=== PATIENT | female | born 2000 | race Two or more races ===

== ENCOUNTER 2022-06-13 10:14 | Inpatient (IN) | payer MEDICAID ==
[~2022-06-13] VITALS: Ht 180.3 cm; Wt 58.4 kg
[2022-06-13 11:09] LABS: Basophils # (auto) 0 10 ^3/uL (0-0.2); Basophils % (auto) 0.1 % (0.0-2.0); Eosinophils # (auto) 0.1 10 ^3/uL (0-0.8); Monocytes # (auto) 0.5 10 ^3/uL (0-1.3); White Blood Cell 10.8 10^3/uL (4.4-10.8)
[2022-06-13 11:11] LABS: Hematocrit 40.1 % (36.0-46.0); Hemoglobin 13.4 g/dL (12.2-16.2); Lymphocytes # (auto) 1.2 10 ^3/uL (0.4-5.4); Lymphocytes % (auto) 11.1 % (10.0-50.0); Mean Corpuscular Hemoglobin 27.6 pg (28.0-32.0); Mean Corpuscular Hgb Conc. 33.5 g/dL (32.0-36.0); Mean Corpuscular Volume 82.4 fL (80.0-100.0); Neutrophils % (auto) 82.8 % (37.0-80.0); Nucleated Red Blood Cells % 0.2 %; Red Blood Cells 4.87 10^6/uL (4.0-5.20); Red Cell Distribution Width 14.1 % (11.8-14.3)
[2022-06-13 11:24] LABS: Albumin 2.9 g/dL (3.4-5.0); Potassium 3.8 mmol/L (3.5-5.1)
[2022-06-13 11:26] LABS: BUN/Creatinine Ratio 13.7 (10.0-20.0)
[2022-06-13 11:29] LABS: Bilirubin, Total 0.3 mg/dL (0.2-1.0); Total Protein 8.3 g/dL (6.4-8.2)
[2022-06-13] MEDS ORDERED: ONDANSETRON ODT 4 MG TAB PO ONE (14:00)
[2022-06-13] MEDS ORDERED: LIDOCAINE VISCOUS 2% 15ML UD PO ONE (14:00)
[2022-06-13] MEDS ORDERED: MAALOX PLUS or MAALOX 30 ML PO ONE (14:00)
[2022-06-13] MEDS ORDERED: FAMOTIDINE 20 MG TAB PO ONE (14:00)
[2022-06-13] MEDS ORDERED: LACTATED RINGER'S 1,000 ML IV ONE (15:15)
[2022-06-13 15:32] LABS: Urine Bacteria FEW /hpf (None Seen); Urine Blood Negative /uL (Negative); Urine Hyaline Cast FEW /lpf (0 - 2); Urine Mucus FEW (None Seen); Urine Specific Gravity 1.018 (1.001-1.035); Urine WBC 2 /hpf (0 - 5)
[2022-06-13] MEDS: SODIUM CHLORIDE 0.9% 1,000 ML IV SCH (17:15)
[2022-06-13] MEDS ORDERED: LORazepam 2MG/ML-1ML VIAL IV ONE (17:15)
[2022-06-13] MEDS: ONDANSETRON HCL 4 MG/2 ML VIAL IV PRN (20:06)
[2022-06-13] MEDS: MORPHINE SULFATE INJ 2 MG/ml SYRG IV PRN (20:07)
[2022-06-13] MEDS: cefTRIAXone 1GM/50ML D5W 50 ML IV SCH (20:46)
[2022-06-13] MEDS: metroNIDAZOLE 500MG/100ML 100 ML IV SCH (23:10)
[2022-06-14] MEDS: SODIUM CHLORIDE 0.9% 1,000 ML IV SCH ×3 (01:35→18:15)
[2022-06-14 02:02] VITALS: BP 127/93
[2022-06-14] MEDS ORDERED: SERT-160 PO (02:53)
[2022-06-14] MEDS ORDERED: HALO5TAB PO (02:53)
[2022-06-14] MEDS ORDERED: MIRT1TAB38 PO (02:53)
[2022-06-14] MEDS ORDERED: BENZ2TAB2 PO (02:53)
[2022-06-14] MEDS ORDERED: LITH300C3 PO (02:53)
[2022-06-14 05:00] VITALS: BP 98/60
[2022-06-14] MEDS: metroNIDAZOLE 500MG/100ML 100 ML IV SCH ×3 (06:06→22:00)
[2022-06-14 07:08] LABS: Basophils # (auto) 0 10 ^3/uL (0-0.2); Basophils % (auto) 0.5 % (0.0-2.0); Eosinophils # (auto) 0.1 10 ^3/uL (0-0.8); Eosinophils % (auto) 2.9 % (0.0-7.0); Hematocrit 32.3 % (36.0-46.0); Hemoglobin 10.8 g/dL (12.2-16.2); Lymphocytes # (auto) 1.1 10 ^3/uL (0.4-5.4); Lymphocytes % (auto) 30.5 % (10.0-50.0); Mean Corpuscular Hemoglobin 27.8 pg (28.0-32.0); Mean Corpuscular Hgb Conc. 33.4 g/dL (32.0-36.0); Mean Corpuscular Volume 83.2 fL (80.0-100.0); Monocytes # (auto) 0.4 10 ^3/uL (0-1.3); Monocytes % (auto) 11.1 % (0.0-12.0); Nucleated Red Blood Cells % 0.1 %; Red Blood Cells 3.88 10^6/uL (4.0-5.20); Red Cell Distribution Width 13.8 % (11.8-14.3); White Blood Cell 3.7 10^3/uL (4.4-10.8)
[2022-06-14 07:31] LABS: Potassium 3.7 mmol/L (3.5-5.1)
[2022-06-14 07:37] LABS: Albumin 2.1 g/dL (3.4-5.0); BUN/Creatinine Ratio 11.8 (10.0-20.0); Calcium 8.3 mg/dL (8.5-10.1)
[2022-06-14 07:40] LABS: Bilirubin, Total 0.2 mg/dL (0.2-1.0); Total Protein 5.7 g/dL (6.4-8.2)
[2022-06-14 09:00] VITALS: BP 107/59
[2022-06-14] MEDS: PANTOPRAZOLE 40 MG/10 ML VIAL INJ IV SCH (09:34)
[2022-06-14] MEDS: cefTRIAXone 1GM/50ML D5W 50 ML IV SCH (09:34)
[2022-06-14] MEDS ORDERED: ENOXAPARIN SOD 40 MG/0.4 ML SYRINGE SC SCH (10:00)
[2022-06-14 10:10] LABS: Amylase 35 U/L (25-115); Lipase 55 U/L (73-393)
[2022-06-14 12:08] LABS: Hematocrit 33.8 % (36.0-46.0)
[2022-06-14] MEDS ORDERED: GASTROGRAFIN 120 ML SOL ONE (13:02)
[2022-06-14 16:00] VITALS: BP 123/75
[2022-06-14 18:18] LABS: Hematocrit 36.7 % (36.0-46.0); Hemoglobin 11.9 g/dL (12.2-16.2)
[2022-06-14 22:00] VITALS: BP 121/76
[2022-06-15 01:04] LABS: Hematocrit 32.5 % (36.0-46.0); Hemoglobin 10.7 g/dL (12.2-16.2)
[2022-06-15] MEDS: SODIUM CHLORIDE 0.9% 1,000 ML IV SCH ×2 (03:32→11:52)
[2022-06-15 05:00] VITALS: BP 118/74
[2022-06-15] MEDS: metroNIDAZOLE 500MG/100ML 100 ML IV SCH ×3 (05:46→21:41)
[2022-06-15 05:58] LABS: Albumin 2.1 g/dL (3.4-5.0); BUN/Creatinine Ratio 10.2 (10.0-20.0); Calcium 8.4 mg/dL (8.5-10.1)
[2022-06-15 06:00] LABS: INR 1.08 (0.9-1.15); Partial Thromboplastin Time 30.7 sec (24.6-33.4)
[2022-06-15 06:01] LABS: Bilirubin, Total 0.2 mg/dL (0.2-1.0); Total Protein 5.8 g/dL (6.4-8.2)
[2022-06-15 06:20] LABS: Basophils # (auto) 0 10 ^3/uL (0-0.2); Basophils % (auto) 0.7 % (0.0-2.0); Eosinophils # (auto) 0.2 10 ^3/uL (0-0.8); Eosinophils % (auto) 4.8 % (0.0-7.0); Hematocrit 32.9 % (36.0-46.0); Hemoglobin 10.8 g/dL (12.2-16.2); Lymphocytes # (auto) 1.2 10 ^3/uL (0.4-5.4); Lymphocytes % (auto) 38.9 % (10.0-50.0); Mean Corpuscular Hemoglobin 27.5 pg (28.0-32.0); Mean Corpuscular Volume 83.2 fL (80.0-100.0); Monocytes # (auto) 0.5 10 ^3/uL (0-1.3); Monocytes % (auto) 14.6 % (0.0-12.0); Neutrophils # (auto) 1.3 10 ^3/uL (1.6-8.6); Nucleated Red Blood Cells % 0.2 %; Red Blood Cells 3.95 10^6/uL (4.0-5.20); Red Cell Distribution Width 13.6 % (11.8-14.3); White Blood Cell 3.2 10^3/uL (4.4-10.8)
[2022-06-15] MEDS: PANTOPRAZOLE 40 MG/10 ML VIAL INJ IV SCH (08:54)
[2022-06-15] MEDS: cefTRIAXone 1GM/50ML D5W 50 ML IV SCH (08:55)
[2022-06-15 09:00] VITALS: BP 100/62
[2022-06-15 13:00] VITALS: BP 113/77
[2022-06-15 17:03] VITALS: BP 126/86
[2022-06-15] MEDS: BENZTROPINE MESY 0.5 MG TAB PO SCH (20:42)
[2022-06-15] MEDS: MORPHINE SULFATE INJ 2 MG/ml SYRG IV PRN (20:42)
[2022-06-15] MEDS: ONDANSETRON HCL 4 MG/2 ML VIAL IV PRN (21:55)
[2022-06-15 22:00] VITALS: BP 119/82
[2022-06-15] MEDS ORDERED: MIRTAZAPINE 30 MG TAB PO SCH (22:00)
[2022-06-16] MEDS: ONDANSETRON HCL 4 MG/2 ML VIAL IV PRN ×2 (02:57→10:30)
[2022-06-16] MEDS: SODIUM CHLORIDE 0.9% 1,000 ML IV SCH ×3 (02:59→11:55)
[2022-06-16 05:00] VITALS: BP 118/86
[2022-06-16] MEDS: metroNIDAZOLE 500MG/100ML 100 ML IV SCH (05:04)
[2022-06-16] MEDS: BENZTROPINE MESY 0.5 MG TAB PO SCH (08:53)
[2022-06-16] MEDS: cefTRIAXone 1GM/50ML D5W 50 ML IV SCH (08:54)
[2022-06-16] MEDS: PANTOPRAZOLE 40 MG/10 ML VIAL INJ IV SCH (08:54)
[2022-06-16] MEDS ORDERED: MIRT-66 PO (08:55)
[2022-06-16 09:00] VITALS: BP 102/65
[2022-06-16] MEDS ORDERED: LITHIUM CARBONATE 300 MG TAB PO SCH (10:00)
[2022-06-16] MEDS ORDERED: SERTRALINE HCL 50 MG TAB PO SCH (10:00)
[2022-06-16] MEDS ORDERED: PANT40T PO (11:03)
[2022-06-16] MEDS ORDERED: ONDA-144 PO (11:03)
[2022-06-16] MEDS ORDERED: METR500T PO (11:42)
[2022-06-16] MEDS ORDERED: LEVO500T31 PO (11:42)
[2022-06-16 12:00] VITALS: BP 114/78
== END 2022-06-16 12:15 | disposition home health service (06) | DRG 247 ==
LOC: ER 10:14 → OVERFLOW 17:05 → WEST WING 06-14 01:47 → TELE-WESTW 06-14 11:28
PROVIDERS: ADMIT Nurse Practitioner Family; ATTEND Internal Medicine
PROC: 0D9670Z Drainage of Stomach with Drainage Device, Via Natural or Artificial Opening (ICD-10-PCS; principal; 2022-06-13)
DX: K56.609 Unspecified intestinal obstruction, unspecified as to partial versus complete obstruction (principal); E44.1 Mild protein-calorie malnutrition; D64.9 Anemia, unspecified; E86.0 Dehydration; E87.1 Hypo-osmolality and hyponatremia; K52.3 Indeterminate colitis; F20.9 Schizophrenia, unspecified; R63.4 Abnormal weight loss; F31.9 Bipolar disorder, unspecified; D72.819 Decreased white blood cell count, unspecified; F41.9 Anxiety disorder, unspecified; Z68.1 Body mass index [BMI] 19.9 or less, adult; Z79.899 Other long term (current) drug therapy; Z91.040 Latex allergy status
CPT/HCPCS: 36415; 71045; 74176; 74250; 80053; 81001; 81025; 82150; 82270; 83690; 84702; 85014; 85018; 85025; 85045; 85610; 85730; 96360; C9113; G0378; J0696; J2405; J3490; Q0162

== ENCOUNTER 2022-06-27 05:19 | Inpatient (IN) | payer MEDICAID ==
[~2022-06-27] VITALS: Ht 180.3 cm; Wt 62.7 kg
[~2022-06-27 05:19] MED LIST: BENZ2TAB2 PO; HALO5TAB PO; LEVO500T31 PO; LITH300C3 PO; METR500T PO; MIRT-66 PO; ONDA-144 PO; PANT40T PO; SERT-160 PO
[2022-06-27 06:11] LABS: Basophils # (auto) 0 10 ^3/uL (0-0.2); Basophils % (auto) 0.2 % (0.0-2.0); Eosinophils # (auto) 0 10 ^3/uL (0-0.8); Eosinophils % (auto) 0.3 % (0.0-7.0); Hematocrit 39.1 % (36.0-46.0); Lymphocytes # (auto) 0.8 10 ^3/uL (0.4-5.4); Lymphocytes % (auto) 9.7 % (10.0-50.0); Mean Corpuscular Hemoglobin 27.6 pg (28.0-32.0); Mean Corpuscular Hgb Conc. 33.2 g/dL (32.0-36.0); Mean Corpuscular Volume 83.1 fL (80.0-100.0); Monocytes # (auto) 0.4 10 ^3/uL (0-1.3); Monocytes % (auto) 4.3 % (0.0-12.0); Neutrophils # (auto) 7.1 10 ^3/uL (1.6-8.6); Neutrophils % (auto) 85.5 % (37.0-80.0); Nucleated Red Blood Cells % 0.1 %; Red Blood Cells 4.71 10^6/uL (4.0-5.20); Red Cell Distribution Width 13.7 % (11.8-14.3); White Blood Cell 8.3 10^3/uL (4.4-10.8)
[2022-06-27 06:31] LABS: Albumin 3.5 g/dL (3.4-5.0); Calcium 9.2 mg/dL (8.5-10.1); Potassium 4.1 mmol/L (3.5-5.1)
[2022-06-27 06:35] LABS: BUN/Creatinine Ratio 8.7 (10.0-20.0); Bilirubin, Total 0.2 mg/dL (0.2-1.0); Total Protein 7.8 g/dL (6.4-8.2)
[2022-06-27] MEDS ORDERED: ONDANSETRON HCL 4 MG/2 ML VIAL IV ONE (07:45)
[2022-06-27] MEDS ORDERED: MORPHINE SULFATE 4 MG/ML SYR/VIAL IV ONE (07:45)
[2022-06-27] MEDS ORDERED: SODIUM CHLORIDE 0.9% 1,000 ML IVB ONE (07:45)
[2022-06-27 08:38] LABS: Urine Bacteria MOD /hpf (None Seen); Urine Blood Negative /uL (Negative); Urine Hyaline Cast MANY /lpf (0 - 2); Urine Mucus FEW (None Seen); Urine Specific Gravity 1.016 (1.001-1.035); Urine WBC 12 /hpf (0 - 5)
[2022-06-27] MEDS ORDERED: OLAN20TA30 PO (14:49)
[2022-06-27] MEDS ORDERED: ONDANSETRON HCL 4 MG/2 ML VIAL IV PRN (15:15)
[2022-06-27] MEDS ORDERED: NITROGLYCERIN 0.4 MG SL TAB SL PRN (15:15)
[2022-06-27] MEDS ORDERED: MORPHINE SULFATE INJ 2 MG/ml SYRG IV PRN (15:15)
[2022-06-27] MEDS ORDERED: ACETAMINOPHEN 325 MG TAB PO PRN (15:15)
[2022-06-27] MEDS: OLANZapine 5 MG TAB PO SCH (23:21)
[2022-06-27] MEDS: PANTOPRAZOLE 40 MG/10 ML VIAL INJ IV SCH (23:21)
[2022-06-27] MEDS: HALOPERIDOL 5 MG TAB PO SCH (23:22)
[2022-06-27] MEDS: MIRTAZAPINE 30 MG TAB PO SCH (23:22)
[2022-06-27] MEDS: SODIUM CHLORIDE 0.9% 1,000 ML IV SCH (23:33)
[2022-06-27] MEDS: BENZTROPINE MESY 0.5 MG TAB PO SCH (23:33)
[2022-06-28 06:43] LABS: Albumin 2.7 g/dL (3.4-5.0); Basophils # (auto) 0 10 ^3/uL (0-0.2); Basophils % (auto) 0.4 % (0.0-2.0); Calcium 8.4 mg/dL (8.5-10.1); Eosinophils # (auto) 0.2 10 ^3/uL (0-0.8); Eosinophils % (auto) 4.1 % (0.0-7.0); Hematocrit 33.2 % (36.0-46.0); Hemoglobin 10.8 g/dL (12.2-16.2); Lymphocytes # (auto) 1.2 10 ^3/uL (0.4-5.4); Lymphocytes % (auto) 27.3 % (10.0-50.0); Mean Corpuscular Hgb Conc. 32.4 g/dL (32.0-36.0); Mean Corpuscular Volume 83.4 fL (80.0-100.0); Monocytes # (auto) 0.5 10 ^3/uL (0-1.3); Monocytes % (auto) 10.6 % (0.0-12.0); Neutrophils # (auto) 2.5 10 ^3/uL (1.6-8.6); Neutrophils % (auto) 57.6 % (37.0-80.0); Nucleated Red Blood Cells % 0.1 %; Red Blood Cells 3.98 10^6/uL (4.0-5.20); Red Cell Distribution Width 13.3 % (11.8-14.3); White Blood Cell 4.4 10^3/uL (4.4-10.8)
[2022-06-28 06:48] LABS: BUN/Creatinine Ratio 7.6 (10.0-20.0); Bilirubin, Total 0.2 mg/dL (0.2-1.0); Total Protein 6.2 g/dL (6.4-8.2)
[2022-06-28 07:06] LABS: Lithium (Eskalith) 0.3 mmol/L (0.5-1.2)
[2022-06-28] MEDS: PANTOPRAZOLE 40 MG/10 ML VIAL INJ IV SCH ×2 (10:38→21:22)
[2022-06-28] MEDS: SODIUM CHLORIDE 0.9% 1,000 ML IV SCH ×3 (11:15→21:23)
[2022-06-28] MEDS: LITHIUM CARBONATE 300 MG TAB PO SCH (12:20)
[2022-06-28] MEDS: BENZTROPINE MESY 0.5 MG TAB PO SCH ×2 (12:21→21:20)
[2022-06-28] MEDS: SERTRALINE HCL 50 MG TAB PO SCH (12:21)
[2022-06-28] MEDS: HALOPERIDOL 5 MG TAB PO SCH ×2 (12:21→21:21)
[2022-06-28] MEDS: MIRTAZAPINE 30 MG TAB PO SCH ×2 (12:21→21:20)
[2022-06-28] MEDS ORDERED: METR500T PO (15:30)
[2022-06-28] MEDS ORDERED: LEVO500T31 PO (15:30)
[2022-06-28] MEDS: HYDROcodone-ACET 5/325MG TAB PO PRN (15:45)
[2022-06-28 16:45] VITALS: BP_SYST 112; BP_SYST 150; BP_DIAS 67; BP_DIAS 87
[2022-06-28 20:00] VITALS: BP 109/70
[2022-06-28 20:20] VITALS: BP 109/70
[2022-06-28] MEDS: OLANZapine 5 MG TAB PO SCH (21:21)
[2022-06-28] MEDS: metroNIDAZOLE 500MG/100ML 100 ML IV SCH (21:23)
[2022-06-29 05:00] VITALS: BP 116/70
[2022-06-29 05:52] LABS: Basophils # (auto) 0 10 ^3/uL (0-0.2); Basophils % (auto) 0.8 % (0.0-2.0); Eosinophils # (auto) 0.3 10 ^3/uL (0-0.8); Eosinophils % (auto) 7.3 % (0.0-7.0); Hematocrit 32.8 % (36.0-46.0); Hemoglobin 11.2 g/dL (12.2-16.2); Lymphocytes # (auto) 1.2 10 ^3/uL (0.4-5.4); Lymphocytes % (auto) 30.4 % (10.0-50.0); Mean Corpuscular Hemoglobin 27.9 pg (28.0-32.0); Mean Corpuscular Volume 81.9 fL (80.0-100.0); Monocytes # (auto) 0.5 10 ^3/uL (0-1.3); Monocytes % (auto) 12.4 % (0.0-12.0); Neutrophils # (auto) 1.9 10 ^3/uL (1.6-8.6); Neutrophils % (auto) 49.1 % (37.0-80.0); Nucleated Red Blood Cells % 0.1 %; Red Blood Cells 4.01 10^6/uL (4.0-5.20); Red Cell Distribution Width 13.2 % (11.8-14.3); White Blood Cell 3.9 10^3/uL (4.4-10.8)
[2022-06-29 06:07] LABS: Albumin 2.6 g/dL (3.4-5.0); BUN/Creatinine Ratio 4.8 (10.0-20.0); Calcium 8.3 mg/dL (8.5-10.1); Potassium 4.2 mmol/L (3.5-5.1)
[2022-06-29 06:09] LABS: Bilirubin, Total 0.2 mg/dL (0.2-1.0)
[2022-06-29] MEDS: metroNIDAZOLE 500MG/100ML 100 ML IV SCH ×3 (06:11→21:15)
[2022-06-29] MEDS: SODIUM CHLORIDE 0.9% 1,000 ML IV SCH ×2 (06:13→16:53)
[2022-06-29] MEDS ORDERED: GASTROGRAFIN 120 ML SOL ONE (08:41)
[2022-06-29 08:43] VITALS: BP 120/83
[2022-06-29] MEDS: MIRTAZAPINE 30 MG TAB PO SCH ×2 (10:00→21:16)
[2022-06-29] MEDS: HALOPERIDOL 5 MG TAB PO SCH ×2 (10:00→21:16)
[2022-06-29] MEDS: BENZTROPINE MESY 0.5 MG TAB PO SCH ×2 (10:00→21:16)
[2022-06-29] MEDS: LITHIUM CARBONATE 300 MG TAB PO SCH (10:00)
[2022-06-29] MEDS: SERTRALINE HCL 50 MG TAB PO SCH (10:00)
[2022-06-29] MEDS: PANTOPRAZOLE 40 MG/10 ML VIAL INJ IV SCH ×2 (10:52→21:16)
[2022-06-29] MEDS: cefTRIAXone 1GM/50ML D5W 50 ML IV SCH (10:53)
[2022-06-29 13:00] VITALS: BP 113/84
[2022-06-29 17:00] VITALS: BP 101/62
[2022-06-29 20:00] VITALS: BP 106/74
[2022-06-29] MEDS: HYDROcodone-ACET 5/325MG TAB PO PRN (20:22)
[2022-06-29] MEDS: OLANZapine 5 MG TAB PO SCH (21:16)
[2022-06-29 22:00] VITALS: BP 106/74
[2022-06-30] MEDS: SODIUM CHLORIDE 0.9% 1,000 ML IV SCH ×3 (04:03→23:01)
[2022-06-30 05:00] VITALS: BP 117/81
[2022-06-30] MEDS: metroNIDAZOLE 500MG/100ML 100 ML IV SCH ×3 (06:10→21:40)
[2022-06-30] MEDS: cefTRIAXone 1GM/50ML D5W 50 ML IV SCH (08:20)
[2022-06-30] MEDS: PANTOPRAZOLE 40 MG/10 ML VIAL INJ IV SCH ×2 (08:21→21:39)
[2022-06-30] MEDS: HALOPERIDOL 5 MG TAB PO SCH ×2 (08:21→21:39)
[2022-06-30] MEDS: MIRTAZAPINE 30 MG TAB PO SCH ×2 (08:21→21:39)
[2022-06-30] MEDS: BENZTROPINE MESY 0.5 MG TAB PO SCH ×2 (08:21→21:39)
[2022-06-30] MEDS: SERTRALINE HCL 50 MG TAB PO SCH (08:21)
[2022-06-30] MEDS: LITHIUM CARBONATE 300 MG TAB PO SCH (08:22)
[2022-06-30 09:00] VITALS: BP 103/67
[2022-06-30] MEDS: HYDROcodone-ACET 5/325MG TAB PO PRN (11:35)
[2022-06-30 13:00] VITALS: BP 115/72
[2022-06-30 16:48] VITALS: BP 116/78
[2022-06-30] MEDS: SIMETHICONE 80 MG CHEWABLE TABLET PO SCH ×2 (17:11→21:40)
[2022-06-30 20:00] VITALS: BP 109/68
[2022-06-30] MEDS: OLANZapine 5 MG TAB PO SCH (21:39)
[2022-06-30 22:00] VITALS: BP 109/68
[2022-07-01 05:00] VITALS: BP 114/82
[2022-07-01] MEDS: SIMETHICONE 80 MG CHEWABLE TABLET PO SCH ×3 (06:14→18:00)
[2022-07-01] MEDS: metroNIDAZOLE 500MG/100ML 100 ML IV SCH ×2 (06:14→17:16)
[2022-07-01 09:00] VITALS: BP 104/71
[2022-07-01] MEDS: cefTRIAXone 1GM/50ML D5W 50 ML IV SCH (09:29)
[2022-07-01] MEDS: PANTOPRAZOLE 40 MG/10 ML VIAL INJ IV SCH (09:29)
[2022-07-01] MEDS: BENZTROPINE MESY 0.5 MG TAB PO SCH (09:31)
[2022-07-01] MEDS: MIRTAZAPINE 30 MG TAB PO SCH (09:31)
[2022-07-01] MEDS: LITHIUM CARBONATE 300 MG TAB PO SCH (09:32)
[2022-07-01] MEDS: HALOPERIDOL 5 MG TAB PO SCH (09:32)
[2022-07-01] MEDS: SERTRALINE HCL 50 MG TAB PO SCH (10:05)
[2022-07-01] MEDS: SODIUM CHLORIDE 0.9% 1,000 ML IV SCH (10:59)
[2022-07-01 13:00] VITALS: BP 104/68
[2022-07-01 16:51] VITALS: BP 110/73
[2022-07-01] MEDS ORDERED: PRED20TA2 PO (17:59)
[2022-07-01] MEDS ORDERED: SULF500T37 PO (17:59)
[2022-07-01] MEDS ORDERED: PANT40TA2 PO (17:59)
== END 2022-07-01 18:55 | disposition home or self-care (01) | DRG 245 ==
LOC: ER 05:19 → OVERFLOW 15:28 → EAST 06-28 14:54
PROVIDERS: ADMIT Nurse Practitioner Family; ATTEND Hospitalist
DX: K50.90 Crohn's disease, unspecified, without complications (principal); K56.7 Ileus, unspecified; E86.0 Dehydration; F20.9 Schizophrenia, unspecified; F31.9 Bipolar disorder, unspecified; F41.9 Anxiety disorder, unspecified; F42.9 Obsessive-compulsive disorder, unspecified; Z91.040 Latex allergy status; Z83.3 Family history of diabetes mellitus; Z82.49 Family history of ischemic heart disease and other diseases of the circulatory system; Z80.9 Family history of malignant neoplasm, unspecified
CPT/HCPCS: 36415; 74176; 74250; 76705; 80053; 80178; 81001; 83690; 84702; 85025; 85652; 86141; 86256; 86671; 87081; 96361; 96374; 96375; C9113; G0378; J0696; J2405; J3490

== ENCOUNTER 2023-06-03 10:35 | Inpatient (IN) | payer MEDICAID ==
[~2023-06-03] VITALS: Ht 182.9 cm; Wt 63.0 kg
[~2023-06-03 10:35] MED LIST changes: -BENZ2TAB2 PO; +BENZ2TAB50 PO; -LEVO500T31 PO; -METR500T PO; -MIRT-66 PO; +MIRT-94 PO; +OLAN20TA30 PO; -ONDA-144 PO; -PANT40T PO; +PANT40TA2 PO; +PRED20TA2 PO; +SULF500T37 PO
[2023-06-03 11:35] LABS: Basophils # (auto) 0.1 10 ^3/uL (0-0.2); Eosinophils # (auto) 0.1 10 ^3/uL (0-0.8); Hemoglobin 12.3 g/dL (12.2-16.2); Lymphocytes # (auto) 1.3 10 ^3/uL (0.4-5.4); Mean Corpuscular Volume 81.2 fL (80.0-100.0); Neutrophils # (auto) 2.6 10 ^3/uL (1.6-8.6)
[2023-06-03 11:39] LABS: Basophils % (auto) 1.3 % (0.0-2.0); Eosinophils % (auto) 2.7 % (0.0-7.0); Hematocrit 37.8 % (36.0-46.0); Lymphocytes % (auto) 29.7 % (10.0-50.0); Mean Corpuscular Hemoglobin 26.4 pg (28.0-32.0); Mean Corpuscular Hgb Conc. 32.5 g/dL (32.0-36.0); Monocytes # (auto) 0.4 10 ^3/uL (0-1.3); Monocytes % (auto) 7.9 % (0.0-12.0); Neutrophils % (auto) 58.4 % (37.0-80.0); Red Blood Cells 4.66 10^6/uL (4.0-5.20); Red Cell Distribution Width 14.9 % (11.8-14.3); White Blood Cell 4.5 10^3/uL (4.4-10.8)
[2023-06-03 11:51] LABS: Alanine Aminotransferase 14 U/L (7-40); Albumin 4.4 g/dL (3.2-4.8); Alkaline Phosphatase 127 U/L (46-116); Anion Gap 4 (5-15); Aspartate Aminotransferase 17 U/L (13-40); BUN/Creatinine Ratio 11.1 (10.0-20.0); Blood Urea Nitrogen 9 mg/dL (9-23); Calcium 9.2 mg/dL (8.5-10.1); Carbon Dioxide 26 mmol/L (20-30); Chloride 110 mmol/L (98-107); Glucose 104 mg/dL (74-106); Potassium 4.5 mmol/L (3.5-5.1); Sodium 140 mmol/L (136-145)
[2023-06-03 11:52] LABS: Bilirubin, Total 0.2 mg/dL (0.2-1.0); Total Protein 6.9 g/dL (5.7-8.2)
[2023-06-03 12:30] LABS: Urine Bacteria FEW /hpf (None Seen); Urine Blood Negative /uL (Negative); Urine Clarity Clear (Clear); Urine Color Light-Yellow (Yellow); Urine Protein, UAD Negative (Negative); Urine Specific Gravity 1.014 (1.001-1.035); Urine Urobilinogen Normal (Negative); Urine WBC 1 /hpf (0 - 5); Urine pH 6.5 (5.0-9.0)
[2023-06-03 12:42] LABS: Amphetamine Screen, Urine Neg (NEGATIVE); Barbiturate Scree,Urine Neg (NEGATIVE); Benzodiazephine Screen, Urine Neg (NEGATIVE); Cannabinoid Screen, Urine Neg (NEGATIVE); Cocaine Screen, Urine Neg (NEGATIVE); Opiate Scree,Urine Neg (NEGATIVE); Phencyclidine Screen, Urine Neg (NEGATIVE)
[2023-06-03] MEDS ORDERED: DOCUSATE SOD 100 MG CAP PO PRN (17:30)
[2023-06-03] MEDS ORDERED: ONDANSETRON HCL 4 MG/2 ML VIAL IV PRN (17:30)
[2023-06-03] MEDS ORDERED: NITROGLYCERIN 0.4 MG SL TAB SL PRN (17:30)
[2023-06-03] MEDS ORDERED: HYDROcodone-ACET 5/325MG TAB PO PRN (17:30)
[2023-06-03] MEDS ORDERED: ACETAMINOPHEN 325 MG TAB PO PRN (17:30)
[2023-06-03] MEDS ORDERED: MORPHINE SULFATE INJ 2 MG/ml SYRG IV PRN (17:30)
[2023-06-03] MEDS ORDERED: OLAN1TAB19 PO (17:44)
[2023-06-03] MEDS ORDERED: HAL5T PO (17:44)
[2023-06-03] MEDS ORDERED: MIRT1TAB38 PO (17:44)
[2023-06-03] MEDS ORDERED: LORazepam 2MG/ML-1ML VIAL IV PRN (17:45)
[2023-06-03] MEDS: levETIRAcetam 500 mg/100ml 100 ML IV ONE (19:16)
[2023-06-03 21:45] VITALS: PULSE 68; RESP 16; O2SAT 98
[2023-06-03] MEDS: HALOPERIDOL 5 MG TAB PO SCH (23:27)
[2023-06-03] MEDS: MIRTAZAPINE 30 MG TAB PO SCH (23:27)
[2023-06-03] MEDS: LITHIUM CARBONATE 300 MG TAB PO SCH (23:27)
[2023-06-03] MEDS: OLANZapine 5 MG TAB PO SCH (23:28)
[2023-06-04] VITALS (10 sets, daily range): BP systolic 82–115; BP diastolic 56–70; PULSE 60–91; RESP 14–21; TEMP 98–98.5; O2SAT 97–100
[2023-06-04 07:17] LABS: Basophils # (auto) 0 10 ^3/uL (0-0.2); Eosinophils # (auto) 0.2 10 ^3/uL (0-0.8); Hematocrit 36.8 % (36.0-46.0); Lymphocytes # (auto) 1.9 10 ^3/uL (0.4-5.4); Monocytes # (auto) 0.7 10 ^3/uL (0-1.3); Neutrophils # (auto) 2.2 10 ^3/uL (1.6-8.6); Nucleated Red Blood Cells % 0.1 %
[2023-06-04 07:21] LABS: Basophils % (auto) 0.8 % (0.0-2.0); Eosinophils % (auto) 3.1 % (0.0-7.0); Lymphocytes % (auto) 39.2 % (10.0-50.0); Mean Corpuscular Hemoglobin 26.6 pg (28.0-32.0); Mean Corpuscular Hgb Conc. 32.5 g/dL (32.0-36.0); Mean Corpuscular Volume 81.7 fL (80.0-100.0); Monocytes % (auto) 13.2 % (0.0-12.0); Neutrophils % (auto) 43.7 % (37.0-80.0); Red Blood Cells 4.51 10^6/uL (4.0-5.20); Red Cell Distribution Width 14.9 % (11.8-14.3)
[2023-06-04 07:34] LABS: Alanine Aminotransferase 10 U/L (7-40); Albumin 3.9 g/dL (3.2-4.8); Alkaline Phosphatase 113 U/L (46-116); Anion Gap 5 (5-15); Aspartate Aminotransferase 14 U/L (13-40); Bilirubin, Total 0.3 mg/dL (0.2-1.0); Blood Urea Nitrogen 6 mg/dL (9-23); Calcium 8.9 mg/dL (8.5-10.1); Carbon Dioxide 24 mmol/L (20-30); Chloride 112 mmol/L (98-107); Glucose 88 mg/dL (74-106); Potassium 3.7 mmol/L (3.5-5.1); Sodium 141 mmol/L (136-145); Total Protein 6.4 g/dL (5.7-8.2)
[2023-06-04] MEDS: OLANZapine 5 MG TAB PO SCH (10:05)
[2023-06-04] MEDS: SERTRALINE HCL 50 MG TAB PO SCH (10:05)
[2023-06-05] VITALS (8 sets, daily range): BP systolic 100–111; BP diastolic 60–70; PULSE 47–117; RESP 16; TEMP 98–98.3; O2SAT 97–100
[2023-06-05] MEDS ORDERED: LORazepam 2MG/ML-1ML VIAL IV PRN (10:15)
[2023-06-06] VITALS (8 sets, daily range): BP systolic 92–124; BP diastolic 54–80; PULSE 75–96; RESP 16–22; TEMP 97.7–98.5; O2SAT 94–100
[2023-06-06] MEDS ORDERED: MORPHINE SULFATE INJ 2 MG/ml SYRG IV PRN (21:45)
[2023-06-07 01:00] VITALS: BP 121/78; PULSE 90; RESP 22; TEMP 98; O2SAT 98
[2023-06-07 05:00] VITALS: BP 118/75; PULSE 79; RESP 22; TEMP 97.9; O2SAT 99
[2023-06-07 08:00] VITALS: RESP 20; O2SAT 93
[2023-06-07 09:27] VITALS: BP 103/62; PULSE 96; RESP 20; TEMP 97.9; O2SAT 93
[2023-06-07] MEDS: lamoTRIgine 25 MG TAB PO SCH (09:40)
== END 2023-06-07 11:32 | disposition home or self-care (01) | DRG 53 ==
LOC: ER 10:35 → OVERFLOW 17:22 → WEST WING 23:07
PROVIDERS: ADMIT Nurse Practitioner Family; ATTEND Family Medicine
DX: G40.802 Other epilepsy, not intractable, without status epilepticus (principal); E46 Unspecified protein-calorie malnutrition; K50.90 Crohn's disease, unspecified, without complications; Z68.1 Body mass index [BMI] 19.9 or less, adult; F17.200 Nicotine dependence, unspecified, uncomplicated; F20.9 Schizophrenia, unspecified; F42.9 Obsessive-compulsive disorder, unspecified; F41.9 Anxiety disorder, unspecified; F98.8 Other specified behavioral and emotional disorders with onset usually occurring in childhood and adolescence; F31.9 Bipolar disorder, unspecified; Z79.899 Other long term (current) drug therapy; Z91.199 Patient's noncompliance with other medical treatment and regimen due to unspecified reason; Z81.8 Family history of other mental and behavioral disorders; Z83.3 Family history of diabetes mellitus
CPT/HCPCS: 36415; 70450; 70551; 80053; 80178; 80307; 81001; 81025; 82962; 83605; 83735; 84484; 85025; 95819; G0378

== ENCOUNTER 2024-03-25 21:32 | Emergency (ER) | payer MEDICAID ==
[~2024-03-25] VITALS: Ht 154.9 cm; Wt 55.0 kg
[~2024-03-25 21:32] MED LIST changes: +HAL5T PO; +MIRT1TAB38 PO; +OLAN1TAB19 PO; +OLAN1TAB75 PO; -OLAN20TA30 PO
--- NOTE | 2024-03-25 21:42 | ED.PDOC ---
SOB-HPI HPI Comments HPI: Poor Historian. HPI: 23-year-old female brought in by EMS from home presents with a chief complaint of SOB x 1 hour. Patient tried her inhaler at home without significant improvement. Patient called EMS due to feeling increasingly SOB. Patients initial vital signs on scene were not recorded per EMS. Patient was given 7.5 albuterol and 0.5 atrovent via breathing treatment. After the breathing treatment and upon arrival to ER, patient is sating at 99%. Patient denies COPD or CHF history. PMHx: Asthma, Autism, Crohns, Bronchitis, Schizophrenia, OCD, Bipolar 1 Disorder, ADD, ADHD, Anxiety, Depression PSHx: None Allergies: Latex Initial Vital Signs: BP: 150/78 HR: 125 Temp: 97.1F SpO2: 99% RR: 18 REVIEW OF SYSTEMS: CONSTITUTIONAL: Denies acute: fever, diaphoresis, chills, generalized weakness. HEAD: Denies acute: headache, photophobia Eyes: Denies acute: Double vision, vision loss, eye pain, eye discharge. EARS: Denies acute: tinnitus, hearing loss, ear discharge, ear pain, THROAT: Denies acute: sore throat, swelling, difficulty swallowing , pain with swallowing, change in voice. NECK: Denies acute: neck pain, neck swelling, stiff neck. HEART: Denies acute : chest pain, palpitations, LUNGS: Denies acute: cough, hemoptysis ABDOMEN: Denies acute: abdominal pain, Nausea, Vomiting, diarrhea, melena , hematemesis, hematochezia SKIN: Denies acute: rash, redness, lesions, itchiness. EXTREMITIES: Denies acute: calf pain, numbness, tingling, weakness, denies pain in extremity. Denies acute: Low back pain. Neuro: Denies acute: focal neurological deficit, motor or sensory focal neurological deficit, tremors, seizure like activity, confusion, dizziness, change in mental status, loss of bowel or bladder function, cauda equina like symptoms. : Denies acute: dysuria, hematuria, flank pain, increase in urinary frequency. PSYCH: Denies acute: hallucination, suicidal ideation, homicidal ideation. FEMALE: Denies acute: abnormal vaginal bleeding, foul odor, unusual discharge. PHYSICAL EXAM: General: no acute distress, awake and alert. Head: normocephalic, atraumatic. Neck: supple, trachea is midline, no swelling. Throat: Normal phonation. Eyes:, no erythema, no purulent discharge, no proptosis, no icterus. Heart: regular tachycardic, no significant murmur appreciated. Lungs: Mild respiratory distress, Able to speak in full sentences. No wheezing, no rhonchi, no crackles. No stridors Clear to auscultation bilaterally. Abdomen: non tender to palpation, non distended, soft, no guarding, no rebound, + bowel sounds. Neuro: Awake, Alert, oriented to name, self, situation, follows commands GCS=15. Speech is normal. Skin: no petechia, no purpura, no cyanosis, non-pale, not jaundice. Lower extremities: --no - Pitting edema no deformity, no focal swelling, no calf TTP. Makes eye contact. moves all four extremities. Face: no apparent facial droop. Time Seen by MD: 21:30 Primary Care Provider: HEALTH DEPARTMENT Reviewed notes: Nurses Notes, Allergies Information Source: Patient, Emergency Med Personnel Mode of Arrival: EMS Past Medical History PAST MEDICAL HISTORY: Anxiety, Depression, Schizophrenia, Seizures Past Medical History (Other): Autism Surgical History: Denies all surgeries TAX PREPARER History: Denies all TAX PREPARER Hx Family History Family History: Family hx of DM, Family hx of Cancer, Family hx of heart cecelia Family History (Other): Psychiatric history Social History Smoker: Non-Smoker Alcohol: Occasionally Drugs: Denies Drug Use Lives In: Home Was a procedure done? Was a procedure done?: No Differential Dx Differential Diagnosis: Other (DDx include ACS, unstable angina, anxiety, PE, pneumothroax, neoplasm, cardiac ischemia, COPD, asthma, CHF, pleural effusion, tobacco abuse, pneumonia, hypoxia, hypercapnia, anemia., infection/sepsis., pulmonary edema. Asthma, Cardiac tamponade, infection.) X-Ray, Labs, Meds, VS Vital Signs Date Time Temp Pulse Resp B/P (MAP) Pulse Ox O2 Delivery O2 Flow Rate FiO2 03/25/24 22:40 135 18 97 Room Air* 0 21 03/25/24 22:40 98.0 135 18 123/73 (90) 97 98.0 03/25/24 22:15 98 Room Air* 0 21 03/25/24 21:32 97.1 128 20 153/78 (103) 99 Lab Test 03/25/24 22:30 03/25/24 22:24 03/25/24 21:46 03/25/24 21:30 Range/Units Influenza Type A Antigen Negative Negative Influenza Type B Antigen Negative Negative SARS-CoV-2 Antigen (Rapid) Negative NEGATIVE Troponin I High Sensitivity < 3 L < 3 L </=34 ng/L White Blood Count 5.9 4.4-10.8 10^3/uL Red Blood Count 4.48 4.0-5.20 10^6/uL Hemoglobin 12.7 12.2-16.2 g/dL Hematocrit 37.8 36.0-46.0 % Mean Corpuscular Volume 84.4 80.0-100.0 fL Mean Corpuscular Hemoglobin 28.4 28.0-32.0 pg Mean Corpuscular Hemoglobin Concent 33.7 32.0-36.0 g/dL Red Cell Distribution Width 12.8 11.8-14.3 % Platelet Count 326 140-450 10^3/uL Mean Platelet Volume 7.1 6.9-10.8 fL Neutrophils (%) (Auto) 47.8 37.0-80.0 % Lymphocytes (%) (Auto) 41.2 10.0-50.0 % Monocytes (%) (Auto) 8.2 0.0-12.0 % Eosinophils (%) (Auto) 1.9 0.0-7.0 % Basophils (%) (Auto) 0.9 0.0-2.0 % Neutrophils # (Auto) 2.8 1.6-8.6 10 ^3/uL Lymphocytes # (Auto) 2.5 0.4-5.4 10 ^3/uL Monocytes # (Auto) 0.5 0-1.3 10 ^3/uL Eosinophils # (Auto) 0.1 0-0.8 10 ^3/uL Basophils # (Auto) 0.1 0-0.2 10 ^3/uL Nucleated Red Blood Cells 0.1 % Sodium Level 139 136-145 mmol/L Potassium Level 3.5 3.5-5.1 mmol/L Chloride Level 107 98-107 mmol/L Carbon Dioxide Level 22 20-31 mmol/L Anion Gap 10 5-15 Blood Urea Nitrogen 13 9-23 mg/dL Creatinine 0.80 0.550-1.02 mg/dL Glomerular Filtration Rate Calc 107 >90 mL/min BUN/Creatinine Ratio 16.3 10.0-20.0 Serum Glucose 118 H 74-106 mg/dL Calcium Level 9.8 8.7-10.4 mg/dL Magnesium Level 1.9 1.6-2.6 mg/dL Total Bilirubin 0.2 0.2-1.0 mg/dL Aspartate Amino Transferase (AST) 12 L 13-40 U/L Alanine Aminotransferase (ALT) 9 7-40 U/L Alkaline Phosphatase 102 46-116 U/L Total Protein 7.3 5.7-8.2 g/dL Albumin 4.7 3.2-4.8 g/dL Urine Color Pending Urine Clarity Pending Urine pH Pending Urine Specific [place] Pending Urine Protein Pending Urine Ketones Pending Urine Blood Pending Urine Nitrite Pending Urine Bilirubin Pending Urine Urobilinogen Pending Urine Leukocyte Esterase Pending Urine RBC Pending Urine Microscopic WBC Pending Urine Squamous Epithelial Cells Pending Urine Bacteria Pending Urine Glucose Pending Current Medications Medications (Trade) Dose Ordered Sig/Didi Route Start Time Stop Time Status Last Admin Sodium Chloride 500 ml @ 500 mls/hr Q1H ONCE IV 03/25/24 21:45 03/25/24 22:44 DC 03/25/24 22:41 Albuterol (Ventolin Medneb) 2.5 mg ONCE ONCE NEB 03/25/24 21:45 03/25/24 21:46 DC 03/25/24 22:20 Ipratropium [place] (Atrovent Medneb) 1 mg ONCE ONCE NEB 03/25/24 21:45 03/25/24 21:46 DC 03/25/24 22:20 Methylprednisolone Sodium Succinate (Solu Medrol) 125 mg ONCE ONCE IV 03/25/24 21:45 03/25/24 21:46 DC 03/25/24 22:41 Time of 1ST Reevaluation: 22:00 Reevaluation 1ST: Unchanged Time of 2ND Reevaluation: 23:59 (Patient is now sitting in the lobby speaking full sentences in no acute respiratory distress. Denies any shortness of breath. Patient was offered admission to the hospital but she feels she can go back home. She will call her mother to pick her up. Patient has the medication she needs at home. I will send him home with some prednisone.) Reevaluation 2ND: Resolved Patient Education/Counseling: Diagnosis, Treatment Family Education/Counseling: No Family Present Comments Chest x-ray findings. Patient has no fever and no cough. Departure 1 Departure Time of Disposition: 23:59 Impression: Primary Impression: Acute asthma exacerbation Disposition: HOME / SELF CARE / HOMELESS Condition: Stable Additional Instructions: Additional discharge instructions: You MUST follow-up with your primary care/family doctor in 1 to 2 days. If you are unable to see your primary care/family doctor, please return to our emergency room for re-assessment and re-evaluation in 1 to 2 days. Return to the emergency room here in our facility or to the nearest ER FOREIGN if your symptoms change or worsen. CONSULTATIONS: you MUST Follow-up for consultation as soon as possible with: pulmonology in 1-2 days. Please call for appointment. You MUST call the consultants office yourself to make an appointment. You may need to arrange that through your insurance and/or your primary/family doctor. If you are unable to see the fashion consultant selling in 1 to 2 days, you must return to our emergency room (or any other ER of your choice) for re-assessment and re- evaluation. Adequate fluid hydration. Below is a copy of your radiological report for follow up: [place] [id number] Ph: [phone] DIAGNOSTIC IMAGING Diagnostic Imaging Report : [id number] Signed PATIENT: LISA XIE ACCT: [id number] UNIT: [id number] : 2000 LOC: ER ROOM / BED: / AGE / SEX: 23 / F ADM STATUS: REG ER SERVICE ORDERING PHYSICIAN: FREDIS HAYES DO PROCEDURE(s): CXRP - CHEST PORTABLE REASON: sob ORDER NUMBER(s): [id number], ACCESSION NUMBER(s): [id number] EXAMINATION: AP portable chest radiograph CLINICAL HISTORY: sob COMPARISON: XY CHEST XRAY 1 VIEW on DOS: 06/13/22 FINDINGS: Costophrenic angles partially excluded. Mild central interstitial prominence. No lobar consolidation identified. No definite pleural effusion or pneumothorax. The cardiomediastinal silhouette appears within normal limits given technique. IMPRESSION: Central interstitial prominence is relatively nonspecific but can be seen with edema, reactive airway changes as well as atypical / viral infection. Please correlate clinically. ATED BY: PAKO OREILLY MD DICTATED DATE/TIME: 03/25/242308 SIGNED BY: PAKO OREILLY MD SIGNED DATE/TIME: 03/25/242308 CC: e-Prescriptions Prednisone (Prednisone) 20 Mg Tab 20 MG PO DAILY for 5 Days, #5 CAP Prov: FREDIS HAYES DO 03/26/24 Discharged With: Self Critical Care Note Critical Care Time?: Yes (35 min-critical care time only) I personally scribed for FREDIS HAYES DO ([email or web address]) on 03/25/24 at 21:42. Electronically submitted by Aurelio Rueda ([email or web address]). FREDIS HAYES DO Mar 25, 2024 21:42
[2024-03-25 22:00] LABS: Basophils # (auto) 0.1 10 ^3/uL (0-0.2); Basophils % (auto) 0.9 % (0.0-2.0); Eosinophils # (auto) 0.1 10 ^3/uL (0-0.8); Eosinophils % (auto) 1.9 % (0.0-7.0); Hematocrit 37.8 % (36.0-46.0); Hemoglobin 12.7 g/dL (12.2-16.2); Lymphocytes # (auto) 2.5 10 ^3/uL (0.4-5.4); Lymphocytes % (auto) 41.2 % (10.0-50.0); Mean Corpuscular Hemoglobin 28.4 pg (28.0-32.0); Mean Corpuscular Hgb Conc. 33.7 g/dL (32.0-36.0); Mean Corpuscular Volume 84.4 fL (80.0-100.0); Monocytes # (auto) 0.5 10 ^3/uL (0-1.3); Monocytes % (auto) 8.2 % (0.0-12.0); Neutrophils # (auto) 2.8 10 ^3/uL (1.6-8.6); Neutrophils % (auto) 47.8 % (37.0-80.0); Nucleated Red Blood Cells % 0.1 %; Platelet Count (auto) 326 10^3/uL (140-450); Red Blood Cells 4.48 10^6/uL (4.0-5.20); Red Cell Distribution Width 12.8 % (11.8-14.3); White Blood Cell 5.9 10^3/uL (4.4-10.8)
[2024-03-25 22:17] LABS: Albumin 4.7 g/dL (3.2-4.8); Alkaline Phosphatase 102 U/L (46-116); Anion Gap 10 (5-15); BUN/Creatinine Ratio 16.3 (10.0-20.0); Blood Urea Nitrogen 13 mg/dL (9-23); Calcium 9.8 mg/dL (8.7-10.4); Carbon Dioxide 22 mmol/L (20-31); Chloride 107 mmol/L (98-107); Magnesium 1.9 mg/dL (1.6-2.6); Potassium 3.5 mmol/L (3.5-5.1); Sodium 139 mmol/L (136-145)
[2024-03-25 22:18] LABS: Total Protein 7.3 g/dL (5.7-8.2)
[2024-03-25] MEDS: IPRATROPIUM BROM 0.5 MG/2.5ML INH SOL NEB ONE (22:20)
[2024-03-25] MEDS: ALBUTEROL SULF 2.5 MG/0.5ML(0.5%) NEB SOLN NEB ONE (22:20)
[2024-03-25 22:22] LABS: Alanine Aminotransferase 9 U/L (7-40); Aspartate Aminotransferase 12 U/L (13-40); Bilirubin, Total 0.2 mg/dL (0.2-1.0); Glucose 118 mg/dL (74-106)
[2024-03-25 22:40] VITALS: PULSE 135; RESP 18; O2SAT 97
[2024-03-25] MEDS: SODIUM CHLORIDE 0.9% 500 ML IV ONE (22:41)
[2024-03-25] MEDS: methylPREDNISolone SOD SUCC 125 MG/2 ML VL IV ONE (22:41)
--- NOTE | 2024-03-25 23:11 | DVH ---
EXAMINATION: AP portable chest radiograph CLINICAL HISTORY: sob COMPARISON: XY CHEST XRAY 1 VIEW on DOS: 06/13/22 FINDINGS: Costophrenic angles partially excluded. Mild central interstitial prominence. No lobar consolidation identified. No definite pleural effusion or pneumothorax. The cardiomediastinal silhouette appears within normal limits given technique. IMPRESSION: Central interstitial prominence is relatively nonspecific but can be seen with edema, reactive airway changes as well as atypical / viral infection. Please correlate clinically.
[2024-03-25 23:51] LABS: COVID19 ANTIGEN SOFIA FIA NEGATIVE (NEGATIVE); Rapid Influenza A Negative (Negative); Rapid Influenza B Negative (Negative)
[2024-03-26] MEDS ORDERED: PRED20TA2 PO (00:11)
[2024-03-26 03:24] VITALS: BP 132/78; PULSE 81; RESP 18; TEMP 97.8; O2SAT 100
== END 2024-03-26 03:26 | disposition home or self-care (01) ==
LOC: ER 21:32 → EDBD 21:32 → ER 03-26 03:26
DX: J45.901 Unspecified asthma with (acute) exacerbation (principal); F20.9 Schizophrenia, unspecified; F31.9 Bipolar disorder, unspecified; F42.9 Obsessive-compulsive disorder, unspecified; Z20.822 Contact with and (suspected) exposure to COVID-19
CPT/HCPCS: 36415; 71045; 80053; 83735; 84484; 85025; 87426; 87804; 94640; 96361; 96374; 99284; J2919; J7040

== ENCOUNTER 2024-07-23 13:39 | Emergency (ER) | payer MEDICAID ==
[~2024-07-23] VITALS: Ht 182.9 cm; Wt 70.0 kg
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
[2024-07-23 20:16] VITALS: BP 121/78; PULSE 81; RESP 20; TEMP 97.5; O2SAT 99
--- NOTE | 2024-07-23 20:41 | ECG ---
[facility] Test Date: 2024-07-23 Test Time: 13:42:47 Pat Name: LISA XIE Department: ED Room: Gender: F Fleet Sales Associate: eddie : 2000 Requested By: CELINE MEDEIROS Order Number: [id number] Reading MD: Josef Bush Measurements Intervals [place] Rate: 80 P: 22 HI: 103 QRS: 85 QRSD: 98 T: 68 QT: 382 QTc: 441 Interpretive Statements Sinus rhythm Short HI interval Borderline T abnormalities, anterior leads Electronically Signed On 07-25-2024 22:21:45 PDT by Josef Bush Please click the below link to view image of tracing.
--- NOTE | 2024-07-23 20:42 | ECG ---
[facility] Test Date: 2024-07-23 Test Time: 15:30:03 Pat Name: LISA XIE Department: ED Room: Gender: F Nurse Case Management: JOSEF : 2000 Requested By: CELINE MEDEIROS Order Number: [id number] Reading MD: Josef Bush Measurements Intervals [place] Rate: 71 P: 51 ND: 93 QRS: 90 QRSD: 83 T: 81 QT: 377 QTc: 410 Interpretive Statements Sinus rhythm Short ND interval Borderline right axis deviation Nonspecific T abnrm, anterolateral leads Electronically Signed On 07-25-2024 22:22:50 PDT by Josef Bush Please click the below link to view image of tracing.
== END 2024-07-23 20:35 | disposition home or self-care (01) ==
LOC: EDUNIT# 13:39 → ER 13:39 → EDBD 13:39 → ER 20:35
DX: T78.40XA Allergy, unspecified, initial encounter (principal); F20.9 Schizophrenia, unspecified; F31.9 Bipolar disorder, unspecified; F41.9 Anxiety disorder, unspecified; F42.9 Obsessive-compulsive disorder, unspecified; F84.0 Autistic disorder; J45.909 Unspecified asthma, uncomplicated; K50.90 Crohn's disease, unspecified, without complications; Z79.52 Long term (current) use of systemic steroids; Z79.899 Other long term (current) drug therapy; Z88.0 Allergy status to penicillin; Z88.1 Allergy status to other antibiotic agents; X58.XXXA Exposure to other specified factors, initial encounter
CPT/HCPCS: 36415; 84484; 93005